=== PATIENT | female | born 1935 | race Hispanic/Latino ===

== ENCOUNTER 2021-09-06 18:43 | Inpatient (IN) | payer OTHER ==
[~2021-09-06] VITALS: Ht 152.4 cm; Wt 51.4 kg
[2021-09-06] MEDS ORDERED: 0.9% NACL 500ML IV.SOLN 500 ML IV ONE (19:00)
[2021-09-06 19:32] LABS: BASOPHILS % (AUTO) 0.5 % (0.0-5.0); EOSINOPHILS % (AUTO) 0.5 % (0.0-8.0); HEMATOCRIT 23.8 % (36-48); LYMPHOCYTES % (AUTO) 13.3 % (21.0-51.0); MEAN CORPUSCULAR HEMOGLOBIN 29.6 pg (27.0-33.0); MEAN CORPUSCULAR HGB CONC 31.5 g/dL (32.0-36.0); MEAN CORPUSCULAR VOLUME 94.1 fL (79-99); MONOCYTES % (AUTO) 4.8 % (3.0-13.0); PLATELET COUNT (AUTO) 435 K/uL (130-400); RED BLOOD CELL COUNT(AUTO) 2.53 MIL/uL (4.00-5.50); RED CELL DISTRIBUTION WIDTH 14.3 % (11.0-15.5); WHITE BLOOD COUNT (AUTO) 8.7 K/uL (4.8-10.8)
[2021-09-06 19:55] LABS: ALBUMIN 2.4 g/dL (3.5-5.0); BILIRUBIN,TOTAL 0.3 mg/dL (0.2-1.0); CREATININE 2.5 mg/dL (0.5-1.5); TOTAL PROTEIN, SERUM 7.1 g/dL (6.0-8.3)
[2021-09-06 20:02] LABS: POTASSIUM 6.1 mmol/L (3.5-5.1)
[2021-09-06 20:04] LABS: B-TYPE NATRIURETIC PEPTIDE 150 pg/mL (0-100)
[2021-09-06] MEDS ORDERED: LISI-662 PO (20:40)
[2021-09-06] MEDS ORDERED: AMLO5TAB4 PO (20:40)
[2021-09-06] MEDS ORDERED: ASPI-1197 PO (20:40)
[2021-09-06] MEDS ORDERED: HYDR-3420 PO (20:40)
[2021-09-06] MEDS ORDERED: BUSP15 PO (20:40)
[2021-09-06] MEDS ORDERED: LABE300T2 PO (20:40)
[2021-09-06] MEDS ORDERED: ATOR40TA69 PO (20:40)
[2021-09-06] MEDS ORDERED: FURO40TA5 PO (20:42)
[2021-09-06 21:00] LABS: ABG OXYGEN SATURATION 26.7 % (95.0-99.0); BASE EXCESS,VENOUS BLOOD GAS -3.4 (-2.0-3.0); HCO3,VENOUS BLOOD GAS 21.9 (21.0-28.0); PCO2,VENOUS BLOOD GAS 41 (32-45)
[2021-09-06] MEDS ORDERED: CALCIUM GLUC 1GM/10ML VIAL IV ONE (21:00)
[2021-09-06] MEDS ORDERED: INSULIN HUMULIN R 100 UNIT/ML 3ML IV ONE (21:00)
[2021-09-06] MEDS ORDERED: SODIUM BICARB 50MEQ 50ML VIAL IV ONE (21:00)
[2021-09-06] MEDS ORDERED: DEXTROSE 50%-WATER 50 ML DISP.SYRIN IV ONE (21:06)
[2021-09-06] MEDS ORDERED: ACETAMINOPHEN 325 MG TAB PO PRN ×2 (22:00)
[2021-09-06] MEDS ORDERED: LACTULOSE 20 GM/30 ML UDCUP PO PRN (22:00)
[2021-09-06] MEDS ORDERED: ONDANSETRON 4MG INJ IV PRN (22:00)
[2021-09-06] MEDS: FAMOTIDINE 20MG TAB PO SCH (22:00)
[2021-09-06 22:23] LABS: APPEARANCE,URINE Turbid (CLEAR); BILIRUBIN,URINE Negative (NEGATIVE); COLOR,URINE Yellow (YELLOW); GLUCOSE, URINE (UA) Negative (NEGATIVE); KETONES,URINE Negative (NEGATIVE); LEUKOCYTE ESTERASE ,URINE Large (NEGATIVE); NITRATE,URINE Positive (NEGATIVE); OCCULT BLOOD,URINE Moderate (NEGATIVE); PH,URINE 6.5 (5.0-8.0); PROTEIN,URINE POS 1+ mg/dL (NEGATIVE); UROBILINOGEN,URINE 0.2 mg/dL (0.2-1.0)
[2021-09-06] MEDS ORDERED: FAMOTIDINE 20MG VIAL IV ONE (22:33)
[2021-09-06] MEDS: LACTATED RINGERS 1000ML 1,000 ML IV SCH (22:38)
[2021-09-06] MEDS: ASPIRIN 81 MG EC TAB PO SCH (22:38)
[2021-09-06 22:46] LABS: WBC,URINE 51-100 /HPF (0-1)
[2021-09-06 22:47] LABS: BACTERIA,URINE Many /HPF (None Seen); SQUAMOUS EPITHELIAL CELL,UR Few /HPF (0-2)
[2021-09-06 23:17] LABS: MAGNESIUM 1.8 mg/dL (1.80-2.40); POTASSIUM 5.4 mmol/L (3.5-5.1)
[2021-09-06 23:46] LABS: HEMOGLOBIN A1C 5.2 % (4.0-6.0)
[2021-09-07] MEDS ORDERED: KAYEXALATE 15GM/60ML PO ONE (02:00)
[2021-09-07] MEDS ORDERED: KAYEXALATE 15GM/60ML ONE (06:06)
[2021-09-07 08:12] LABS: BASOPHILS % (AUTO) 0.2 % (0.0-5.0); LYMPHOCYTES % (AUTO) 28.5 % (21.0-51.0); MEAN CORPUSCULAR HEMOGLOBIN 29.2 pg (27.0-33.0); MEAN CORPUSCULAR HGB CONC 31.5 g/dL (32.0-36.0); MEAN CORPUSCULAR VOLUME 92.7 fL (79-99); MONOCYTES % (AUTO) 10.4 % (3.0-13.0); NEUTROPHILS % (AUTO) 57.6 % (40.0-77.0); PLATELET COUNT (AUTO) 345 K/uL (130-400); RED BLOOD CELL COUNT(AUTO) 1.92 MIL/uL (4.00-5.50); RED CELL DISTRIBUTION WIDTH 14.4 % (11.0-15.5); WHITE BLOOD COUNT (AUTO) 4.6 K/uL (4.8-10.8)
[2021-09-07 08:14] LABS: HEMATOCRIT 17.8 % (36-48)
[2021-09-07] MEDS: ASPIRIN 81 MG EC TAB PO SCH (08:24)
[2021-09-07 08:35] LABS: ALBUMIN 1.8 g/dL (3.5-5.0); BILIRUBIN,TOTAL 0.2 mg/dL (0.2-1.0); CREATININE 2.3 mg/dL (0.5-1.5); POTASSIUM 5.1 mmol/L (3.5-5.1); TOTAL PROTEIN, SERUM 5.5 g/dL (6.0-8.3)
[2021-09-07] MEDS: METOPROLOL TARTRATE 25 MG TAB PO SCH ×2 (10:38→21:02)
[2021-09-07 14:23] LABS: HEMATOCRIT 22.4 % (36-48)
[2021-09-07] MEDS: CEFTRIAXONE 1G VIAL IVP SCH ×2 (14:37→17:11)
[2021-09-07 14:41] LABS: % IRON SATURATION 96.3 % (22-44)
[2021-09-07 15:46] LABS: BILIRUBIN,URINE Negative (NEGATIVE); COLOR,URINE Yellow (YELLOW); GLUCOSE, URINE (UA) Negative (NEGATIVE); KETONES,URINE Negative (NEGATIVE); LEUKOCYTE ESTERASE ,URINE Large (NEGATIVE); NITRATE,URINE Negative (NEGATIVE); OCCULT BLOOD,URINE Small (NEGATIVE); PH,URINE 7.5 (5.0-8.0); PROTEIN,URINE POS 1+ mg/dL (NEGATIVE); UROBILINOGEN,URINE 0.2 mg/dL (0.2-1.0)
[2021-09-07 15:50] LABS: APPEARANCE,URINE CLOUDY (CLEAR)
[2021-09-07 15:59] LABS: BACTERIA,URINE Moderate /HPF (None Seen); WBC,URINE 51-100 /HPF (0-1)
[2021-09-07 16:00] LABS: SQUAMOUS EPITHELIAL CELL,UR Rare /HPF (0-2)
[2021-09-07 17:30] VITALS: BP 139/85
[2021-09-07 20:00] VITALS: BP 136/75
[2021-09-07 20:11] LABS: HEMATOCRIT 29.2 % (36-48)
[2021-09-07] MEDS: LACTATED RINGERS 1000ML 1,000 ML IV SCH (21:00)
[2021-09-07] MEDS: ATORVASTATIN 20 MG TABLET PO SCH (21:02)
[2021-09-07] MEDS: FAMOTIDINE 20MG TAB PO SCH (21:02)
[2021-09-08] VITALS: BP_SYST 106; BP_SYST 117; BP_DIAS 67; BP_DIAS 78
[2021-09-08 01:21] LABS: HEMATOCRIT 27.5 % (36-48)
[2021-09-08 04:00] VITALS: BP 114/63
[2021-09-08 05:36] LABS: BASOPHILS % (AUTO) 0.2 % (0.0-5.0); EOSINOPHILS % (AUTO) 1.5 % (0.0-8.0); HEMATOCRIT 26.9 % (36-48); LYMPHOCYTES % (AUTO) 28.2 % (21.0-51.0); MEAN CORPUSCULAR HEMOGLOBIN 28.5 pg (27.0-33.0); MEAN CORPUSCULAR VOLUME 89.1 fL (79-99); MONOCYTES % (AUTO) 7.2 % (3.0-13.0); NEUTROPHILS % (AUTO) 62.1 % (40.0-77.0); PLATELET COUNT (AUTO) 296 K/uL (130-400); RED BLOOD CELL COUNT(AUTO) 3.02 MIL/uL (4.00-5.50); RED CELL DISTRIBUTION WIDTH 15.2 % (11.0-15.5); WHITE BLOOD COUNT (AUTO) 4.7 K/uL (4.8-10.8)
[2021-09-08 06:01] LABS: ALBUMIN 1.7 g/dL (3.5-5.0); BILIRUBIN,TOTAL 0.4 mg/dL (0.2-1.0); CREATININE 2.1 mg/dL (0.5-1.5); PHOSPHORUS 3.2 mg/dL (2.5-4.9); POTASSIUM 4.6 mmol/L (3.5-5.1); THYROID STIMULATING HORMONE 9.85 uIU/mL (0.36-3.74); TOTAL PROTEIN, SERUM 5.2 g/dL (6.0-8.3)
[2021-09-08 08:00] VITALS: BP 129/77
[2021-09-08] MEDS: ASPIRIN 81 MG EC TAB PO SCH (09:17)
[2021-09-08] MEDS: METOPROLOL TARTRATE 25 MG TAB PO SCH ×2 (09:17→20:58)
[2021-09-08 12:00] VITALS: BP 135/80
[2021-09-08] MEDS: LACTATED RINGERS 1000ML 1,000 ML IV SCH ×2 (14:00→22:13)
[2021-09-08 16:00] VITALS: BP 130/84
[2021-09-08 20:00] VITALS: BP 114/73
[2021-09-08] MEDS: FAMOTIDINE 20MG TAB PO SCH (20:58)
[2021-09-08] MEDS: ATORVASTATIN 20 MG TABLET PO SCH (20:58)
[2021-09-09] VITALS (19 sets, daily range): BP systolic 114–161; BP diastolic 68–104
[2021-09-09 04:45] LABS: BASOPHILS % (AUTO) 0.5 % (0.0-5.0); EOSINOPHILS % (AUTO) 1.4 % (0.0-8.0); HEMATOCRIT 27.2 % (36-48); LYMPHOCYTES % (AUTO) 20.8 % (21.0-51.0); MEAN CORPUSCULAR HEMOGLOBIN 28.8 pg (27.0-33.0); MEAN CORPUSCULAR HGB CONC 31.3 g/dL (32.0-36.0); MEAN CORPUSCULAR VOLUME 92.2 fL (79-99); MONOCYTES % (AUTO) 7.2 % (3.0-13.0); NEUTROPHILS % (AUTO) 69.5 % (40.0-77.0); PLATELET COUNT (AUTO) 287 K/uL (130-400); RED BLOOD CELL COUNT(AUTO) 2.95 MIL/uL (4.00-5.50); RED CELL DISTRIBUTION WIDTH 14.9 % (11.0-15.5); WHITE BLOOD COUNT (AUTO) 6.4 K/uL (4.8-10.8)
[2021-09-09 04:53] LABS: POTASSIUM 4.4 mmol/L (3.5-5.1)
[2021-09-09] MEDS ORDERED: DEXTROSE 50%-WATER 50 ML DISP.SYRIN IV ONE (06:47)
[2021-09-09] MEDS: DEXTROSE 50%-WATER 50 ML DISP.SYRIN IV SCH (07:12)
[2021-09-09] MEDS: ASPIRIN 81 MG EC TAB PO SCH (09:00)
[2021-09-09] MEDS ORDERED: LIDOCAINE HCL 400MG/20ML VIAL ONE (09:34)
[2021-09-09] MEDS ORDERED: PROPOFOL 10 MG/ML 20ML VIAL IV ONE (09:34)
[2021-09-09] MEDS: CEFTRIAXONE 1G VIAL IVP SCH (12:50)
[2021-09-09] MEDS: METOPROLOL TARTRATE 25 MG TAB PO SCH ×2 (12:50→20:24)
[2021-09-09] MEDS: PANTOPRAZOLE 40 MG TAB DR PO SCH (20:24)
[2021-09-09] MEDS: FAMOTIDINE 20MG TAB PO SCH (20:24)
[2021-09-09] MEDS: ATORVASTATIN 20 MG TABLET PO SCH (20:24)
[2021-09-09] MEDS ORDERED: PANTOPRAZOLE 40 MG TAB DR PO SCH (21:00)
[2021-09-10 04:00] VITALS: BP 130/79
[2021-09-10] MEDS: LACTATED RINGERS 1000ML 1,000 ML IV SCH (04:29)
[2021-09-10] MEDS: DEXTROSE 50%-WATER 50 ML DISP.SYRIN IV SCH (04:32)
[2021-09-10 04:47] LABS: BASOPHILS % (AUTO) 0.2 % (0.0-5.0); EOSINOPHILS % (AUTO) 0.6 % (0.0-8.0); HEMATOCRIT 27.3 % (36-48); LYMPHOCYTES % (AUTO) 11.6 % (21.0-51.0); MEAN CORPUSCULAR HEMOGLOBIN 28.9 pg (27.0-33.0); MEAN CORPUSCULAR HGB CONC 31.5 g/dL (32.0-36.0); MEAN CORPUSCULAR VOLUME 91.6 fL (79-99); MONOCYTES % (AUTO) 6.6 % (3.0-13.0); NEUTROPHILS % (AUTO) 80.4 % (40.0-77.0); PLATELET COUNT (AUTO) 276 K/uL (130-400); RED BLOOD CELL COUNT(AUTO) 2.98 MIL/uL (4.00-5.50); RED CELL DISTRIBUTION WIDTH 14.8 % (11.0-15.5); WHITE BLOOD COUNT (AUTO) 9.6 K/uL (4.8-10.8)
[2021-09-10 04:58] LABS: CREATININE 1.7 mg/dL (0.5-1.5); POTASSIUM 4.6 mmol/L (3.5-5.1)
[2021-09-10 08:00] VITALS: BP 132/75
[2021-09-10] MEDS: METOPROLOL TARTRATE 25 MG TAB PO SCH ×2 (10:01→19:47)
[2021-09-10] MEDS: PANTOPRAZOLE 40 MG TAB DR PO SCH ×2 (10:02→19:46)
[2021-09-10] MEDS ORDERED: AMLODIPINE 5 MG TAB PO PRN (11:00)
[2021-09-10] MEDS ORDERED: BUSPIRONE HCL 5 MG TABLET PO PRN (11:00)
[2021-09-10 12:00] VITALS: BP 111/77
[2021-09-10] MEDS: CEFTRIAXONE 1G VIAL IVP SCH (13:04)
[2021-09-10 16:00] VITALS: BP 125/86
[2021-09-10] MEDS: ATORVASTATIN 20 MG TABLET PO SCH (19:46)
[2021-09-10] MEDS: FAMOTIDINE 20MG TAB PO SCH (19:47)
[2021-09-10 20:24] VITALS: BP 108/66
[2021-09-10 23:07] VITALS: BP 105/67
[2021-09-11 03:37] VITALS: BP 101/72
[2021-09-11] MEDS: LACTATED RINGERS 1000ML 1,000 ML IV SCH ×2 (04:17→20:03)
[2021-09-11] MEDS: DEXTROSE 50%-WATER 50 ML DISP.SYRIN IV SCH (04:18)
[2021-09-11 04:52] LABS: MEAN CORPUSCULAR HEMOGLOBIN 29.2 pg (27.0-33.0); MEAN CORPUSCULAR HGB CONC 30.8 g/dL (32.0-36.0); MEAN CORPUSCULAR VOLUME 94.7 fL (79-99); RED BLOOD CELL COUNT(AUTO) 2.64 MIL/uL (4.00-5.50); RED CELL DISTRIBUTION WIDTH 15.1 % (11.0-15.5); WHITE BLOOD COUNT (AUTO) 8.5 K/uL (4.8-10.8)
[2021-09-11 05:02] LABS: CREATININE 1.9 mg/dL (0.5-1.5); POTASSIUM 4.5 mmol/L (3.5-5.1)
[2021-09-11 08:00] VITALS: BP 155/89
[2021-09-11] MEDS: METOPROLOL TARTRATE 25 MG TAB PO SCH ×2 (09:00→20:03)
[2021-09-11] MEDS: PANTOPRAZOLE 40 MG TAB DR PO SCH ×2 (09:53→20:03)
[2021-09-11 11:42] LABS: HEMATOCRIT 35.9 % (36-48)
[2021-09-11 12:00] VITALS: BP_SYST 108; BP_SYST 126; BP_SYST 143; BP_DIAS 79; BP_DIAS 87; BP_DIAS 92
[2021-09-11] MEDS: CEFTRIAXONE 1G VIAL IVP SCH (14:10)
[2021-09-11 16:00] VITALS: BP 139/78
[2021-09-11] MEDS ORDERED: TRAMADOL HCL 50 MG TABLET PO ONE (17:30)
[2021-09-11 20:00] VITALS: BP 113/59
[2021-09-11] MEDS: ATORVASTATIN 20 MG TABLET PO SCH (20:03)
[2021-09-11] MEDS: FAMOTIDINE 20MG TAB PO SCH (20:03)
[2021-09-12] VITALS: BP 123/68
[2021-09-12 04:00] VITALS: BP 113/59
[2021-09-12] MEDS: DEXTROSE 50%-WATER 50 ML DISP.SYRIN IV SCH (04:29)
[2021-09-12] MEDS ORDERED: TRAMADOL HCL 50 MG TABLET PO ONE (05:30)
[2021-09-12 07:12] LABS: HEMATOCRIT 29.1 % (36-48)
[2021-09-12 07:42] LABS: CREATININE 1.9 mg/dL (0.5-1.5); POTASSIUM 4.8 mmol/L (3.5-5.1)
[2021-09-12 08:00] VITALS: BP 122/74
[2021-09-12] MEDS: PANTOPRAZOLE 40 MG TAB DR PO SCH (08:19)
[2021-09-12] MEDS: METOPROLOL TARTRATE 25 MG TAB PO SCH (08:19)
[2021-09-12] MEDS ORDERED: METO25TA6 PO (10:04)
[2021-09-12] MEDS ORDERED: PANT40TA55 PO (10:04)
[2021-09-12] MEDS ORDERED: CEFU500T67 PO (10:09)
[2021-09-12 11:50] VITALS: BP 134/79
== END 2021-09-12 13:25 | disposition home or self-care (01) | DRG 177 ==
LOC: EDH 18:43 → OBSVTOIN 18:44 → EDHIP 18:44 → UNDOADMOB 21:50 → EDHIP 21:50 → 4BH 09-07 17:48
PROVIDERS: ADMIT Hospitalist; ATTEND Internal Medicine
PROC: 0W3P8ZZ Control Bleeding in Gastrointestinal Tract, Via Natural or Artificial Opening Endoscopic (ICD-10-PCS; principal; 2021-09-07)
PROC: 30233N1 Transfusion of Nonautologous Red Blood Cells into Peripheral Vein, Percutaneous Approach (ICD-10-PCS; 2021-09-07)
DX: U07.1 COVID-19 (principal); K26.4 Chronic or unspecified duodenal ulcer with hemorrhage; I21.4 Non-ST elevation (NSTEMI) myocardial infarction; N17.9 Acute kidney failure, unspecified; E87.1 Hypo-osmolality and hyponatremia; D62 Acute posthemorrhagic anemia; N13.6 Pyonephrosis; E87.5 Hyperkalemia; D64.9 Anemia, unspecified; N18.9 Chronic kidney disease, unspecified; K57.30 Diverticulosis of large intestine without perforation or abscess without bleeding; N81.3 Complete uterovaginal prolapse; E78.00 Pure hypercholesterolemia, unspecified; I34.0 Nonrheumatic mitral (valve) insufficiency; I12.9 Hypertensive chronic kidney disease with stage 1 through stage 4 chronic kidney disease, or unspecified chronic kidney disease; M19.90 Unspecified osteoarthritis, unspecified site; N28.89 Other specified disorders of kidney and ureter; Z79.899 Other long term (current) drug therapy; Z83.3 Family history of diabetes mellitus; Z90.49 Acquired absence of other specified parts of digestive tract
CPT/HCPCS: 36415; 36600; 43255; 71045; 73100; 74176; 76770; 80048; 80053; 80061; 81001; 82270; 82435; 82550; 82728; 82803; 82947; 82948; 83036; 83540; 83550; 83605; 83735; 83880; 84100; 84132; 84145; 84295; 84443; 84484; 84550; 85014; 85018; 85025; 85027; 86677; 86850; 86900; 86901; 86922; 86923; 87040; 87077; 87088; 87186; 87426; 93005; 97039; 99291; A4606; G0378; J0610; J0696; J1815; J2704; J3490; J7040; J7070; J7120; P9016